=== PATIENT | male | born 1960 | race Two or more races ===

== ENCOUNTER 2017-07-14 20:32 | Emergency (ER) | payer BC, OTHER ==
[~2017-07-14] VITALS: Ht 177.8 cm; Wt 111.1 kg
[~2017-07-14 20:32] MED LIST: EMTRTAB7 PO; RALT400T PO
[2017-07-14 20:37] VITALS: BP 177/96
== END 2017-07-15 01:27 | disposition home or self-care (01) ==
LOC: ER 20:42
DX: S60.042A Contusion of left ring finger without damage to nail, initial encounter (principal); I10 Essential (primary) hypertension; W19.XXXA Unspecified fall, initial encounter; Y93.89 Activity, other specified; Y92.89 Other specified places as the place of occurrence of the external cause; Y99.8 Other external cause status
CPT/HCPCS: 73140

== ENCOUNTER → 2018-08-17 | Outpatient (CLI) | payer OTHER, BC ==
[2018-08-17 08:46] LABS: Basophils # (auto) 0 uL; Basophils % (auto) 0.6 % (0.0-2.0); Eosinophils # (auto) 0.1 uL; Hematocrit 47.4 % (41.0-53.0); Lymphocytes # (auto) 1.3 uL; Lymphocytes % (auto) 19.4 % (10.0-50.0); Mean Corpuscular Hemoglobin 32.6 pg (28.0-32.0); Mean Corpuscular Hgb Conc. 33.7 g/dL (32.0-36.0); Mean Corpuscular Volume 96.8 fL (80.0-100.0); Monocytes # (auto) 0.4 uL; Monocytes % (auto) 6.1 % (0.0-12.0); Neutrophils # (auto) 5.1 uL; Neutrophils % (auto) 72.9 % (37.0-80.0); Platelet Count (auto) 239 10^3/uL (140-450); Red Cell Distribution Width 13.4 % (11.8-14.3); Urine Bacteria NONE SEEN /hpf (None Seen); Urine Blood Negative /uL (Negative); Urine Specific Gravity 1.019 (1.001-1.035); Urine WBC <1 /hpf (0 - 3)
[2018-08-17 09:11] LABS: Albumin 3.5 g/dL (3.4-5.0); Anion Gap 6 (5-15); Blood Urea Nitrogen 14 mg/dL (7-18); Calcium 8.4 mg/dL (8.5-10.1); Carbon Dioxide 24 mmol/L (21-32); Chloride 110 mmol/L (98-107); Glucose 103 mg/dL (74-106); Sodium 140 mmol/L (136-145)
[2018-08-17 09:17] LABS: Alanine Aminotransferase 29 U/L (16-61); Alkaline Phosphatase 74 U/L (45-117); Aspartate Aminotransferase 17 U/L (15-37); BUN/Creatinine Ratio 21.5; Bilirubin, Total 0.3 mg/dL (0.2-1.0); Cholesterol 215 mg/dL (< 200); HDL Cholesterol 58 mg/dL (40-59); LDL Cholesterol 151 mg/dL (< 100); Total Protein 7.1 g/dL (6.4-8.2); Triglycerides 86 mg/dL (< 150)
[2018-08-17 09:21] LABS: GFR African American > 60 mL/min; GFR Non-African American > 60 mL/min
[2018-08-17 09:31] LABS: Prostate Specific Antigen 0.64 ng/mL (0.0-4.0)
[2018-08-17 09:41] LABS: Folate (Folic Acid) 16.98 ng/mL (5.38-24)
== END | disposition home or self-care (01) ==
LOC: LAB 07:35
PROVIDERS: ATTEND Nurse Practitioner
DX: E78.5 Hyperlipidemia, unspecified (principal)
CPT/HCPCS: 36415; 80053; 80061; 81001; 82306; 82607; 82746; 83036; 84153; 84443; 84550; 85025; 85652

== ENCOUNTER → 2018-11-30 | Outpatient (CLI) | payer BC ==
[2018-11-30 08:16] LABS: Urine Bacteria NONE SEEN /hpf (None Seen); Urine Blood Negative /uL (Negative); Urine Specific Gravity 1.019 (1.001-1.035); Urine WBC <1 /hpf (0 - 3)
[2018-11-30 08:51] LABS: Potassium 4.4 mmol/L (3.5-5.1)
[2018-11-30 09:07] LABS: Albumin 3.6 g/dL (3.4-5.0); BUN/Creatinine Ratio 14.3; Bilirubin, Total 0.3 mg/dL (0.2-1.0); Total Protein 6.8 g/dL (6.4-8.2)
== END | disposition home or self-care (01) ==
LOC: LAB 07:35
PROVIDERS: ATTEND Nurse Practitioner
DX: E78.5 Hyperlipidemia, unspecified (principal); E11.9 Type 2 diabetes mellitus without complications
CPT/HCPCS: 36415; 80053; 80061; 81001; 82043; 83036

== ENCOUNTER → 2019-04-27 | Outpatient (CLI) | payer BC ==
[2019-04-27 08:22] LABS: Cholesterol 161 mg/dL (< 200); HDL Cholesterol 58 mg/dL (40-59); LDL Cholesterol 93 mg/dL (< 100); Triglycerides 81 mg/dL (< 150)
== END | disposition home or self-care (01) ==
LOC: LAB 07:30
PROVIDERS: ATTEND Nurse Practitioner
DX: E78.5 Hyperlipidemia, unspecified (principal); I10 Essential (primary) hypertension
CPT/HCPCS: 36415; 80061; 83036

== ENCOUNTER → 2019-12-07 | Outpatient (CLI) | payer BC ==
[2019-12-07 10:05] LABS: Urine Bacteria NONE SEEN /hpf (None Seen); Urine Blood Negative /uL (Negative); Urine Mucus FEW (None Seen); Urine Specific Gravity 1.021 (1.001-1.035); Urine WBC <1 /hpf (0 - 3)
[2019-12-07 11:38] LABS: Albumin 3.3 g/dL (3.4-5.0); Potassium 4.1 mmol/L (3.5-5.1)
[2019-12-07 11:46] LABS: BUN/Creatinine Ratio 16.9; Bilirubin, Total 0.6 mg/dL (0.2-1.0); Calcium 8.8 mg/dL (8.5-10.1); Total Protein 7.1 g/dL (6.4-8.2)
== END | disposition home or self-care (01) ==
LOC: LAB 09:32
PROVIDERS: ATTEND Nurse Practitioner
DX: E78.5 Hyperlipidemia, unspecified (principal); I10 Essential (primary) hypertension
CPT/HCPCS: 36415; 80053; 80061; 81001; 84443

== ENCOUNTER → 2020-02-18 | Outpatient (CLI) | payer BC ==
[2020-02-18 08:30] LABS: Basophils # (auto) 0 10 ^3/uL (0-0.2); Basophils % (auto) 0.7 % (0.0-2.0); Eosinophils # (auto) 0.1 10 ^3/uL (0-0.8); Eosinophils % (auto) 0.9 % (0.0-7.0); Hematocrit 47.8 % (41.0-53.0); Lymphocytes # (auto) 1.3 10 ^3/uL (0.4-5.4); Lymphocytes % (auto) 19.6 % (10.0-50.0); Mean Corpuscular Hemoglobin 32.4 pg (28.0-32.0); Mean Corpuscular Hgb Conc. 33.5 g/dL (32.0-36.0); Mean Corpuscular Volume 96.8 fL (80.0-100.0); Monocytes # (auto) 0.4 10 ^3/uL (0-1.3); Monocytes % (auto) 6.6 % (0.0-12.0); Neutrophils # (auto) 4.9 10 ^3/uL (1.6-8.6); Neutrophils % (auto) 72.2 % (37.0-80.0); Platelet Count (auto) 238 10^3/uL (140-450); Red Blood Cells 4.93 10^6/uL (4.5-5.90); Red Cell Distribution Width 13.5 % (11.8-14.3); White Blood Cell 6.8 10^3/uL (4.4-10.8)
[2020-02-18 08:34] LABS: Urine Bacteria FEW /hpf (None Seen); Urine Blood Negative /uL (Negative); Urine Mucus FEW (None Seen); Urine Specific Gravity 1.024 (1.001-1.035); Urine WBC 1 /hpf (0 - 3)
[2020-02-18 09:08] LABS: Albumin 3.5 g/dL (3.4-5.0); BUN/Creatinine Ratio 21.7; Bilirubin, Total 0.3 mg/dL (0.2-1.0); Calcium 8.6 mg/dL (8.5-10.1); Total Protein 6.8 g/dL (6.4-8.2)
== END | disposition home or self-care (01) ==
LOC: LAB 08:01
PROVIDERS: ATTEND Nurse Practitioner
DX: E78.5 Hyperlipidemia, unspecified (principal); I10 Essential (primary) hypertension; R53.83 Other fatigue
CPT/HCPCS: 36415; 80053; 80061; 81001; 83036; 84403; 84443; 85025; 85652; 86431

== ENCOUNTER → 2021-03-08 | Outpatient (CLI) | payer BC | END | disposition home or self-care (01) | LOC: LAB 11:07 | PROVIDERS: ATTEND Nurse Practitioner Family | DX: U07.1 COVID-19 (principal) | CPT/HCPCS: 36415; 87426 ==

== ENCOUNTER 2022-07-11 06:28 | Day surgery (SDC) | payer BC ==
[2022-07-08 14:17] LABS: Urine Bacteria None Seen /hpf (None Seen); Urine WBC None Seen /hpf (0 - 3)
[2022-07-08 14:26] LABS: Basophils # (auto) 0.1 10 ^3/uL (0-0.2); Basophils % (auto) 0.8 % (0.0-2.0); Eosinophils # (auto) 0.1 10 ^3/uL (0-0.8); Eosinophils % (auto) 1.7 % (0.0-7.0); Hematocrit 47.1 % (41.0-53.0); Hemoglobin 15.7 g/dL (13.5-17.5); Lymphocytes # (auto) 1.6 10 ^3/uL (0.4-5.4); Lymphocytes % (auto) 23.9 % (10.0-50.0); Mean Corpuscular Hemoglobin 32.2 pg (28.0-32.0); Mean Corpuscular Hgb Conc. 33.4 g/dL (32.0-36.0); Mean Corpuscular Volume 96.2 fL (80.0-100.0); Monocytes # (auto) 0.6 10 ^3/uL (0-1.3); Neutrophils # (auto) 4.2 10 ^3/uL (1.6-8.6); Neutrophils % (auto) 64.6 % (37.0-80.0); Nucleated Red Blood Cells % 0.1 %; Red Blood Cells 4.89 10^6/uL (4.5-5.90); Red Cell Distribution Width 13.6 % (11.8-14.3); White Blood Cell 6.5 10^3/uL (4.4-10.8)
[2022-07-08 14:44] LABS: INR 1.03 (0.9-1.15); Partial Thromboplastin Time 26.8 sec (24.6-33.4)
[2022-07-08 14:48] LABS: Albumin 3.5 g/dL (3.4-5.0); Calcium 8.4 mg/dL (8.5-10.1); Potassium 3.9 mmol/L (3.5-5.1)
[2022-07-08 14:56] LABS: BUN/Creatinine Ratio 20.6; Bilirubin, Total 0.2 mg/dL (0.2-1.0); Total Protein 6.8 g/dL (6.4-8.2)
[2022-07-08 17:13] LABS: Urine Specific Gravity 1.024 (1.001-1.035)
[2022-07-08 17:14] LABS: Urine Blood Negative /uL (Negative)
[~2022-07-11] VITALS: Ht 177.8 cm; Wt 99.8 kg
[~2022-07-11 06:28] MED LIST changes: -EMTRTAB7 PO; +LISI20TA28 PO; -RALT400T PO; +TERA2CAP45 PO
[2022-07-11] MEDS ORDERED: LIDOCAINE W/ EPINEPHRINE 2% INJ 20ML VIAL ONE (06:51)
[2022-07-11] MEDS ORDERED: BUPIVACAINE 0.25% INJ 50ML VIAL ONE (06:51)
[2022-07-11] MEDS ORDERED: VANCOMYCIN HCL 1000 MG VL ONE (06:52)
[2022-07-11] MEDS ORDERED: MORPHINE SULF PF 5 MG/10 ML VIAL ONE (07:05)
[2022-07-11] MEDS ORDERED: MIDAZOLAM HCL 2MG/2ML 2ml VIAL (1mg/ml) ONE (07:15)
[2022-07-11] MEDS ORDERED: KETAMINE HCL 10 ML ONE (07:15)
[2022-07-11] MEDS ORDERED: fentaNYL CITRATE 100 MCG/2 ML VL ONE (07:15)
[2022-07-11] MEDS ORDERED: GLYCOPYRROLATE 0.2 MG/ML 1ML VIAL ONE (07:16)
[2022-07-11] MEDS ORDERED: ONDANSETRON HCL 4 MG/2 ML VIAL ONE (07:16)
[2022-07-11] MEDS ORDERED: PROPOFOL 10 MG/ML 20 ML IV ONE (07:16)
[2022-07-11] MEDS ORDERED: ceFAZolin 1GM/50ML 100 ML IV ONE (07:19)
[2022-07-11] MEDS ORDERED: HYDROmorphone HCL 2 MG/ML VL/or syr ONE (08:05)
[2022-07-11] MEDS ORDERED: ONDANSETRON HCL 4 MG/2 ML VIAL IV PRN (08:45)
[2022-07-11] MEDS ORDERED: HYDROmorphone HCL 2 MG/ML VL/or syr IV PRN (08:45)
[2022-07-11 09:05] VITALS: BP 105/55
== END 2022-07-11 09:12 | disposition home or self-care (01) ==
LOC: SUR 06:28
PROVIDERS: ATTEND Anesthesiology Pain Medicine
DX: M48.062 Spinal stenosis, lumbar region with neurogenic claudication (principal); I10 Essential (primary) hypertension; G89.29 Other chronic pain; Z20.822 Contact with and (suspected) exposure to COVID-19; Z79.899 Other long term (current) drug therapy
CPT/HCPCS: 22869; 22870; 36415; 72100; 76000; 80053; 81001; 85025; 85610; 85730; 87086; C1821; J0690; J1170; J2250; J2270; J2405; J2704; J3010; J3370; J3490; U0003

== ENCOUNTER → 2023-10-15 | Outpatient (CLI) | payer BC ==
[~2023-10-15] MED LIST changes: -LISI20TA28 PO; +LISI20TA56 PO
[2023-10-15 07:25] LABS: Urine Bacteria NONE SEEN /hpf (None Seen); Urine Blood Negative /uL (Negative); Urine Clarity Clear (Clear); Urine Color Yellow (Yellow); Urine Mucus FEW (None Seen); Urine Protein, UAD TRACE (Negative); Urine Specific Gravity 1.025 (1.001-1.035); Urine Urobilinogen Normal (Negative); Urine WBC 1 /hpf (0 - 3)
[2023-10-15 07:28] LABS: Basophils # (auto) 0 10 ^3/uL (0-0.2); Basophils % (auto) 0.6 % (0.0-2.0); Eosinophils # (auto) 0.2 10 ^3/uL (0-0.8); Eosinophils % (auto) 2.2 % (0.0-7.0); Hematocrit 47.1 % (41.0-53.0); Hemoglobin 16.1 g/dL (13.5-17.5); Lymphocytes # (auto) 2.5 10 ^3/uL (0.4-5.4); Lymphocytes % (auto) 31.2 % (10.0-50.0); Mean Corpuscular Hemoglobin 32.7 pg (28.0-32.0); Mean Corpuscular Hgb Conc. 34.1 g/dL (32.0-36.0); Monocytes # (auto) 0.8 10 ^3/uL (0-1.3); Monocytes % (auto) 9.5 % (0.0-12.0); Neutrophils # (auto) 4.6 10 ^3/uL (1.6-8.6); Neutrophils % (auto) 56.5 % (37.0-80.0); Red Blood Cells 4.91 10^6/uL (4.5-5.90); Red Cell Distribution Width 14.1 % (11.8-14.3); White Blood Cell 8.1 10^3/uL (4.4-10.8)
[2023-10-15 07:36] LABS: Alanine Aminotransferase 21 U/L (7-40); Albumin 4.1 g/dL (3.2-4.8); Alkaline Phosphatase 92 U/L (46-116); Anion Gap 6 (5-15); Aspartate Aminotransferase 15 U/L (13-40); BUN/Creatinine Ratio 16.7 (10.0-20.0); Blood Urea Nitrogen 11 mg/dL (9-23); Calcium 8.8 mg/dL (8.5-10.1); Carbon Dioxide 29 mmol/L (20-30); Chloride 107 mmol/L (98-107); Glucose 106 mg/dL (74-106); LDL Cholesterol 134 mg/dL (< 100); Sodium 142 mmol/L (136-145); Triglycerides 125 mg/dL (< 150)
[2023-10-15 07:37] LABS: Bilirubin, Total 0.5 mg/dL (0.2-1.0); Cholesterol 186 mg/dL (< 200); HDL Cholesterol 51 mg/dL (40-59); Total Protein 6.6 g/dL (5.7-8.2)
== END | disposition home or self-care (01) ==
LOC: LAB 06:45
PROVIDERS: ATTEND Nurse Practitioner
DX: I10 Essential (primary) hypertension (principal); E78.5 Hyperlipidemia, unspecified; R73.9 Hyperglycemia, unspecified
CPT/HCPCS: 36415; 80053; 80061; 81001; 83036; 84153; 84443; 85025

== ENCOUNTER 2024-08-03 13:01 | Emergency (ER) | payer BC ==
[~2024-08-03] VITALS: Ht 172.7 cm; Wt 96.0 kg
[~2024-08-03 13:01] MED LIST changes: -TERA2CAP45 PO; +TERA2CAP79 PO
[2024-08-03 13:32] VITALS: BP 138/84; PULSE 68; RESP 20; O2SAT 94
--- NOTE | 2024-08-03 16:12 | ED.PDOC ---
History of Present Illness(SKN HPI Comments Presents with dermatomal vesicular rash located on left side of the face Onset began 5 days Characterizes painful, rated at, and described as burning/stinging sensation Denies eye pain, vision loss, floaters, diplopia Denies fevers chills abdominal pain nausea vomiting diarrhea Chief Complaint: Rash Time Seen by MD: 14:47 Primary Care Provider: paco History of Present Illness: Nurses Notes, Medications, Allergies Allergies: Coded Allergies: NO KNOWN ALLERGIES (Unverified , 09/20/13) Home Meds Active Scripts Ibuprofen Micronized (Ibuprofen) 800 Mg Tab, 800 MG PO TID for 14 Days, #42 TAB 0 Refills Prov:SHY BURNS CHANNEL [employer] 08/03/24 Valacyclovir Hcl (Valtrex) 1 Gm Tab, 1 TAB PO DAILY, #30 TAB 5 Refills Prov:SHY BURNS CH[employer]IP ST[employer] INSOLES 08/03/24 Reported Medications Lisinopril (Lisinopril) 20 Mg Tab, 20 MG PO DAILY, TAB 07/08/22 Terazosin Hcl (Terazosin Hcl) 2 Mg Cap, 2 MG PO QPM, CAP 07/08/22 Information Source: Patient Mode of Arrival: Ambulatory Past Medical History PAST MEDICAL HISTORY: HTN, Denies Surgical History: Denies all surgeries Family History Family History: Unobtainable Social History Smoker: Non-Smoker Alcohol: Denies ETOH Use Drugs: Denies Drug Use Lives In: Home All Other Systems: Reviewed and Negative (per hpi) Physical Exam General Appearance: No Apparent Distress, Normal HEENT: Normal ENT Inspection, Pharynx Normal, TMs Normal Neck: Full Range of Motion, Non-Tender, Normal, Normal Inspection Respiratory: Chest Non-Tender, Lungs Clear, No Accessory Muscle Use, No Respiratory Distress, Normal Breath Sounds Cardiovascular: No Edema, No JVD, No Murmur, No Gallop, Normal Peripheral Pulses, Regular Rate/Rhythm Breast Exam: Deferred Gastrointestinal: No Organomegaly, Non Tender, No Pulsatile Mass, Normal Bowel Sounds, Soft Genitalia: Deferred Pelvic: Deferred Rectal: Deferred Extremities: No calf tenderness, Normal capillary refill, Normal inspection, Normal range of motion, Non-tender, No pedal edema Musculoskeletal : Apperance: Normal Neurologic: Alert, 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 It does not cross the dermatome. No ocular involvement), Warm Lymphatic: No Adenopathy Was a procedure done? Was a procedure done?: Yes Sedation Sedation?: No Other Procedure Procedure eye exam Notes Applied 1 drop of tetracaine and patient reported instant relief with topical anesthesia Applied fluorescein strip Using Sandhu lamp Grant Sign negative Branching/dendritic pattern negative Visual acuity intact Differential Diagnosis (INTG) Differential Diagnosis: Herpes Zoster/Simplex, Varicella, Other X-Ray, Labs, Meds, VS Vital Signs Date Time Temp Pulse Resp B/P (MAP) Pulse Ox O2 Delivery O2 Flow Rate FiO2 08/03/24 13:32 99.6 68 20 138/84 (102) 94 X-Ray, Labs, Meds, VS Comment History of physical exam consistent with shingles Take antiviral medication as prescribed Keep skin clean and dry to reduce bacterial superinfection Consider cool astringent soaks Skin lesions usually within 2 to 4 weeks, but complete healing may take 1 to 4 weeks Patient is stable for discharge at this time. External notes reviewed. Test results and diagnostic imaging interpreted. All diagnostic findings, discharge care, education and instructions provided Follow-up with PCP in 2 to 3 days Patient verbalized understanding and agreed to treatment plan Vital signs stable, afebrile, no acute distress noted Patient ambulatory with strong steady gait Advised to return precautions for any new or worsening symptoms, return to ER immediately for re-evaluation Patient is aware that the purpose of this visit was for an acute medical emergency requiring emergent stabilization. Chronic conditions, including malignancies have not been ruled out. Patient is instructed to follow up with PCP as directed and discharge instructions for continued care and workup. If unable to arrange follow-up, patient is to return to the emergency department for reassessment. Patient (parent or legal guardian if applicable) was given verbal and written discharge instructions and acknowledges understanding. Time of 1ST Reevaluation: 16:00 Reevaluation 1ST: Improved Patient Education/Counseling: Diagnosis, Treatment Family Education/Counseling: Diagnosis, Treatment Departure 1 Departure Time of Disposition: 16:21 Impression: Primary Impression: Shingles Qualified Codes: B02.9 - Zoster without complications Disposition: HOME / SELF CARE / HOMELESS Condition: Stable e-Prescriptions Ibuprofen Micronized (Ibuprofen) 800 Mg Tab 800 MG PO TID for 14 Days, #42 TAB 0 Refills Prov: SHY BURNS [employer]OL[employer] 08/03/24 Valacyclovir Hcl (Valtrex) 1 Gm Tab 1 TAB PO DAILY, #30 TAB 5 Refills Prov: SHY BURNS CH[employer]IP [employer] INSOLES 08/03/24 Discharged With: Self Critical Care Note Critical Care Time?: No Stability Stability form required: No Heart Score Heart Score: Heart Score Response (Comments) Value History N/A 0 EKG N/A 0 Age N/A 0 Risk Factors N/A 0 Troponin N/A 0 Total 0 SHY BURNS NP Aug 03, 2024 16:12
[2024-08-03] MEDS ORDERED: IBUP-1455 PO (16:23)
[2024-08-03] MEDS ORDERED: VALA1TAB PO (16:23)
[2024-08-03] MEDS: FLUORESCEIN SOD OPTH TEST STRIP EACHEYE ONE (16:26)
[2024-08-03] MEDS: TETRACAINE HCL 0.5% OPTH(EYE) SOLN 4ML EACHEYE ONE (16:26)
== END 2024-08-03 16:34 | disposition home or self-care (01) ==
LOC: ER 13:01
DX: B02.9 Zoster without complications (principal); I10 Essential (primary) hypertension; Z79.899 Other long term (current) drug therapy

== ENCOUNTER 2024-08-05 13:55 | Inpatient (IN) | payer BC, MEDICARE ==
[~2024-08-05] VITALS: Ht 167.6 cm; Wt 99.0 kg
[~2024-08-05 13:55] MED LIST changes: +IBUP-1455 PO; +VALA1TAB PO
--- NOTE | 2024-08-05 15:26 | ED.PDOC ---
History of Present Illness(SKN HPI Comments A 64 YEAR OLD MALE PRESENTS TO THE ED WITH CHIEF COMPLAINT OF LEFT SIDED FACIAL RASH AND SWELLING. PATIENT REPORTS THAT HE STARTED TO EXPERIENCE A RASH TO THE LEFT SIDE OF HIS FOREHEAD/SCALP THAT WORSENED OVER TIME FOR THE PAST WEEK. PATIENT RELAYS THAT HE WAS SEEN ON FRIDAY IN THE ED AND WAS DIAGNOSED WITH SHINGLES, BEING PRESCRIBED AN ANTIVIRAL. HE FINISHED HIS ACYCLOVIR MEDICATION BUT IT HAS NOT RELIEVED HIS SYMPTOMS AND TODAY HE STARTED TO HAVE LEFT SIDED FACIAL/LEFT EYELIDS SWELLING, NOW BEING UNABLE TO OPEN HIS LEFT EYELIDS. PATIENT DENIES ANY FEVER, CHILLS, DIZZINESS, HEADACHE, VISION CHANGE, N/V, OR ITCHINESS. NO OTHER SYMPTOMS REPORTED AT THIS TIME OF CARE. Chief Complaint: Rash Time Seen by MD: 15:17 Primary Care Provider: ? History of Present Illness: Nurses Notes, Medications, Allergies Allergies: Coded Allergies: NO KNOWN ALLERGIES (Unverified , 09/20/13) Home Meds Active Scripts Ibuprofen Micronized (Ibuprofen) 800 Mg Tab, 800 MG PO TID for 14 Days, #42 TAB 0 Refills Prov:SHY BURNS MACHINE [employer]AM[employer] 08/03/24 Valacyclovir Hcl (Valtrex) 1 Gm Tab, 1 TAB PO DAILY, #30 TAB 5 Refills Prov:SHY BURNS [employer]ACHINE [employer]AM[employer]ATER 08/03/24 Reported Medications Lisinopril (Lisinopril) 20 Mg Tab, 20 MG PO DAILY, TAB 07/08/22 Terazosin Hcl (Terazosin Hcl) 2 Mg Cap, 2 MG PO QPM, CAP 07/08/22 Information Source: Patient Mode of Arrival: Ambulatory Severity: Moderate Timing: Weeks Duration: Since onset Prehospital treatment: None Location: Face Mechanism: Spontaneous Onset Developed: Facial Swelling, Rash Object: None Retained Foreign Body: No Wound Type: Unknown Immunization Status of Animal: NA Tetanus: Unknown History of: None Associated Signs and Symptoms: Redness, Swelling, Facial Swelling, Pain Past Medical History PAST MEDICAL HISTORY: HTN Surgical History: Denies all surgeries Family History Family History: Unobtainable Social History Smoker: Non-Smoker Alcohol: Denies ETOH Use Drugs: Denies Drug Use Lives In: Home Constitutional: denies: chills, diaphoresis, fatigue, fever, malaise, sweats, weakness, others EENTM: reports: others (LEFT UPPER AND LOWER EYELID SWELLING. ); denies: blurred vision, double vision, ear bleeding, ear discharge, ear drainage, ear pain, ear ringing, eye pain, hearing loss, mouth pain, mouth swelling, nasal discharge, nose bleeding, nose congestion, nose pain, photophobia, tearing, throat pain, throat swelling, voice changes Respiratory: denies: cough, hemoptysis, orthopnea, SOB at rest, shortness of breath, SOB with excertion, stridor, wheezing, others Cardiovascular: denies: chest pain, dizzy spells, diaphoresis, Dyspnea on exertion, edema, irregular heart beat, left arm pain, lightheadedness, palpitat ions, PND, syncope, others Gastrointestinal: denies: abdomen distended, abdominal pain, blood streaked bow els, constipated, diarrhea, dysphagia, difficulty swallowing, hematemesis, melena, nausea, poor appetite, poor fluid intake, rectal bleeding, rectal pain, vomiting, others Genitourinary: denies: burning, dysuria, flank pain, frequency, hematuria, incontinence, penile discharge, penile sore, pain, testicle pain, testicle swelling, urgency, others Neurological: denies: dizziness, fainting, headache, left sided numbness, left sided weakness, numbness, paresthesia, pre-existing deficit, right sided numbness, right sided weakness, seizure, speech problems, tingling, tremors, weakness, others Musculoskeletal: denies: back pain, gout, joint pain, joint swelling, muscle pain, muscle stiffness, neck pain, others Integumetry: reports: lesions (TO LEFT FOREHEAD), rash, wounds; denies: bruises, change in color, change in hair/nails, dryness, laceration, lumps, others Allergic/Immunocompromised: denies: Difficulty Healing, Frequent Infections, Hives, Itching, others Hematologic/Lymphatic: denies: anemia, blood clots, easy bleeding, easy bruising, swollen glands, others Endocrine: denies: excessive hunger, excessive sweating, excessive thirst, excessive urination, flushing, intolerance to cold, intolerance to heat, unexplained weight gain, unexplained weight loss, others Psychiatric: denies: anxiety, bipolar disorder, depression, hopeless, panic disorder, schizophrenia, sleepless, suicidal, others All Other Systems: Reviewed and Negative Physical Exam General Appearance: No Apparent Distress, Normal HEENT: Eye Lid (L) (REDNESS AND SWELLING ON LEFT UPPER AND LOWER EYELID. ), Normal ENT Inspection, PERRL/EOMI, Pharynx Normal Neck: Full Range of Motion, Non-Tender, Normal, Normal Inspection Respiratory: Chest Non-Tender, Lungs Clear, No Accessory Muscle Use, No Respiratory Distress, Normal Breath Sounds Cardiovascular: No Edema, No JVD, No Murmur, No Gallop, Normal Peripheral Pulses, Regular Rate/Rhythm Breast Exam: Deferred Gastrointestinal: No Organomegaly, Non Tender, No Pulsatile Mass, Normal Bowel Sounds, Soft Genitalia: Deferred Pelvic: Deferred Rectal: Deferred Extremities: No calf tenderness, Normal capillary refill, Normal inspection, Normal range of motion, Non-tender, No pedal edema Musculoskeletal : Apperance: Normal Neurologic: Alert, 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 ), Warm, Wounds (PAPULAR AND MACULAR OPEN WOUND WITH CRUSTING AND BLACK SCABS ON LEFT FOREHEAD, NO PUS DRAINAGE. HERPES ZOSTER/CELLULITIS. ) Peripheral Pulses: 2+ carotid (R), 2+ carotid (L) Lymphatic: No Adenopathy Was a procedure done? Was a procedure done?: No Differential Diagnosis (INTG) Differential Diagnosis: Cellulitis, Herpes Zoster/Simplex, Impetigo, Intertrigo X-Ray, Labs, Meds, VS Vital Signs Date Time Temp Pulse Resp B/P (MAP) Pulse Ox O2 Delivery O2 Flow Rate FiO2 08/05/24 16:18 99.0 74 18 133/85 (101) 94 99.0 08/05/24 14:15 98.0 87 18 147/80 (102) 96 Lab Test 08/05/24 15:51 08/05/24 15:28 Range/Units White Blood Count 5.7 4.4-10.8 10^3/uL Red Blood Count 4.84 4.5-5.90 10^6/uL Hemoglobin 16.0 13.5-17.5 g/dL Hematocrit 46.2 41.0-53.0 % Mean Corpuscular Volume 95.5 80.0-100.0 fL Mean Corpuscular Hemoglobin 33.0 H 28.0-32.0 pg Mean Corpuscular Hemoglobin Concent 34.6 32.0-36.0 g/dL Red Cell Distribution Width 13.4 11.8-14.3 % Platelet Count 183 140-450 10^3/uL Mean Platelet Volume 7.0 6.9-10.8 fL Neutrophils (%) (Auto) 62.2 37.0-80.0 % Lymphocytes (%) (Auto) 21.3 10.0-50.0 % Monocytes (%) (Auto) 14.9 H 0.0-12.0 % Eosinophils (%) (Auto) 1.1 0.0-7.0 % Basophils (%) (Auto) 0.5 0.0-2.0 % Neutrophils # (Auto) 3.5 1.6-8.6 10 ^3/uL Lymphocytes # (Auto) 1.2 0.4-5.4 10 ^3/uL Monocytes # (Auto) 0.8 0-1.3 10 ^3/uL Eosinophils # (Auto) 0.1 0-0.8 10 ^3/uL Basophils # (Auto) 0 0-0.2 10 ^3/uL Nucleated Red Blood Cells 0.2 % Sodium Level 140 136-145 mmol/L Potassium Level 3.6 3.5-5.1 mmol/L Chloride Level 107 98-107 mmol/L Carbon Dioxide Level 26 20-31 mmol/L Anion Gap 7 5-15 Blood Urea Nitrogen 9 9-23 mg/dL Creatinine 0.69 L 0.700-1.30 mg/dL Glomerular Filtration Rate Calc 102 >90 mL/min BUN/Creatinine Ratio 13.0 10.0-20.0 Serum Glucose 107 H 74-106 mg/dL Lactic Acid Level 2.0 0.4-2.0 mmol/L Calcium Level 9.8 8.7-10.4 mg/dL Urine Color Yellow Yellow Urine Clarity Clear Clear Urine pH 6.0 5.0-9.0 Urine Specific [place] 1.021 1.001-1.035 Urine Protein Negative Negative Urine Ketones Trace Negative Urine Blood Negative Negative /uL Urine Nitrite Negative Negative Urine Bilirubin Negative Negative Urine Urobilinogen Normal Negative mg/dL Urine Leukocyte Esterase Negative Negative /uL Urine RBC 2 0 - 3 /hpf Urine WBC 1 0 - 3 /hpf Urine Squamous Epithelial Cells None seen <5 /hpf Urine Bacteria None seen None Seen /hpf Urine Hyaline Casts Few 0 - 2 /lpf Urine Mucus Few None Seen Urine Glucose Normal Normal mg/dL Current Medications Medications (Trade) Dose Ordered Sig/Jason Route Start Time Stop Time Status Last Admin Ceftriaxone Sodium 50 ml @ 100 mls/hr ONCE ONCE IV 08/05/24 15:30 08/05/24 15:59 DC 08/05/24 16:50 X-Ray, Labs, Meds, VS Comment EXTERNAL MEDICAL RECORDS REVIEWED: 08/03/24 FOR SHINGLES INDEPENDENT HISTORIANS: [NONE] SOCIAL DETERMINANTS OF HEALTH: [NONE] LABS ORDERED: BLOOD CULTURE, LACTIC, UA, CBC, BMP REVIEWED AND INTERPRETED RESULTS: NONE IMAGING ORDERED: NONE TREATMENTS ORDERED: ACYCLOVIR 800MG IV, ROCEPHIN 1G IV, NORMAL SALINE 1L IV DUE TO PATIENT FINISHING PREVIOUSLY PRESCRIBED ACYCLOVIR AND CONTINUED TO EXPERIENCE LEFT FACIAL SWELLING AND SOFT TISSUE INFECTION, PATIENT IS TO BE ADMITTED FOR FAILED OUTPATIENT TREATMENT AND REQUIRES FURTHER INPATIENT TREATMENT AND EVALUATION. Time of 1ST Reevaluation: 16:40 Reevaluation 1ST: Unchanged Patient Education/Counseling: Diagnosis, Treatment Family Education/Counseling: No Family Present Departure 1 Departure Time of Disposition: 16:40 Impression: Primary Impression: Cellulitis of face Additional Impressions: Herpes zoster Qualified Codes: B02.8 - Zoster with other complications Failure of outpatient treatment Disposition: ADMITTED INPATIENT Condition: Serious Critical Care Note Critical Care Time?: No Stability Stability form required: No Unstable for transfer: Requires medication, ED Physician Assesment, Possible rapid decline Heart Score Heart Score: Heart Score Response (Comments) Value History N/A 0 EKG N/A 0 Age N/A 0 Risk Factors N/A 0 Troponin N/A 0 Total 0 I personally scribed for REINALDO CHAVEZ ([email or web address]) on 08/05/24 at 15:26. Electronically submitted by Sha Ellis ([email or web address]). REINALDO CHAVEZ Aug 05, 2024 15:26
[2024-08-05] MEDS ORDERED: CLINDAMYCIN 900MG IV 50 ML IV ONE (15:30)
[2024-08-05 15:39] LABS: Urine Bacteria None Seen /hpf (None Seen)
[2024-08-05 16:11] LABS: Urine Blood Negative /uL (Negative); Urine Clarity Clear (Clear); Urine Color Yellow (Yellow); Urine Hyaline Cast FEW /lpf (0 - 2); Urine Mucus FEW (None Seen); Urine Protein, UAD Negative (Negative); Urine Specific Gravity 1.021 (1.001-1.035); Urine Squamous Epithelial Cell None Seen /hpf (<5); Urine Urobilinogen Normal (Negative); Urine WBC 1 /hpf (0 - 3)
[2024-08-05 16:14] LABS: Basophils # (auto) 0 10 ^3/uL (0-0.2); Basophils % (auto) 0.5 % (0.0-2.0); Eosinophils # (auto) 0.1 10 ^3/uL (0-0.8); Eosinophils % (auto) 1.1 % (0.0-7.0); Hematocrit 46.2 % (41.0-53.0); Lymphocytes # (auto) 1.2 10 ^3/uL (0.4-5.4); Lymphocytes % (auto) 21.3 % (10.0-50.0); Mean Corpuscular Hgb Conc. 34.6 g/dL (32.0-36.0); Mean Corpuscular Volume 95.5 fL (80.0-100.0); Monocytes # (auto) 0.8 10 ^3/uL (0-1.3); Monocytes % (auto) 14.9 % (0.0-12.0); Neutrophils # (auto) 3.5 10 ^3/uL (1.6-8.6); Neutrophils % (auto) 62.2 % (37.0-80.0); Nucleated Red Blood Cells % 0.2 %; Platelet Count (auto) 183 10^3/uL (140-450); Red Blood Cells 4.84 10^6/uL (4.5-5.90); Red Cell Distribution Width 13.4 % (11.8-14.3); White Blood Cell 5.7 10^3/uL (4.4-10.8)
[2024-08-05] MEDS: SODIUM CHLORIDE 0.9% 1,000 ML IV ONE (16:20)
[2024-08-05 16:27] LABS: Potassium 3.6 mmol/L (3.5-5.1); Sodium 140 mmol/L (136-145)
[2024-08-05 16:28] LABS: Anion Gap 7 (5-15); Calcium 9.8 mg/dL (8.7-10.4); Carbon Dioxide 26 mmol/L (20-31)
[2024-08-05 16:34] LABS: Blood Urea Nitrogen 9 mg/dL (9-23); Chloride 107 mmol/L (98-107); Glucose 107 mg/dL (74-106)
[2024-08-05] MEDS: cefTRIAXone 1GM/50ML D5W 50 ML IV ONE (16:50)
[2024-08-05 19:15] VITALS: PULSE 79; RESP 13; O2SAT 96
[2024-08-05 19:45] VITALS: PULSE 77; RESP 17; O2SAT 97
[2024-08-05] MEDS: ACYCLOVIR SOD 50MG/ML 800 MG in SODIUM CHL 0.9% 250 ML IV ONE (21:00)
[2024-08-05] MEDS ORDERED: hydrALAZINE HCL 20 MG/ML VL IV PRN (21:15)
[2024-08-05] MEDS ORDERED: ACETAMINOPHEN 325 MG TAB PO PRN (21:15)
[2024-08-05] MEDS ORDERED: ONDANSETRON HCL 4 MG/2 ML VIAL IV PRN (21:15)
[2024-08-05] MEDS ORDERED: DOCUSATE SOD 100 MG CAP PO PRN (21:15)
[2024-08-05] MEDS: MORPHINE SULFATE 4 MG/ML SYR/VIAL IV ONE (21:21)
[2024-08-05] MEDS: ONDANSETRON HCL 4 MG/2 ML VIAL IV ONE (21:21)
[2024-08-05] MEDS ORDERED: ACYCLOVIR SOD IV SCH (22:00)
[2024-08-05] MEDS: ASCORBIC ACID 500 MG TAB PO SCH (22:00)
[2024-08-05] MEDS ORDERED: D5W 5% IV SCH (22:00)
[2024-08-05] MEDS: SODIUM CHLOR 0.9% PF (SALINE LOCK) 10ML VIAL/SYR IV SCH (22:15)
--- NOTE | 2024-08-05 22:58 | DVHHP2 ---
History of Present Illness Reason for Visit: Cellulitis of face History of Present Illness The patient is a 64-year-old male with past medical history of hypertension who presented to [facility] ED with complaint of left-sided facial rash and swelling. Patient reports he started experiencing a rash the left side f orehead/scalp that worsened over the time for the past week, getting worse today that prompted this visit. Patient reports she was seen on Friday in the ED and was diagnosed with shingle and was discharged home with an antiviral regimen. However, symptoms continued to get worse, no relief of symptoms, lesions spreading to the left side of his face/eyelid swelling. Patient was seen and evaluated in the ED, laboratory data shows WBC 5.7, platelets 183, sodium 140, potassium 3.6, BUN 9, creatinine 0.69, GFR 102, glucose 107, blood pressure 131/56, pulse 76, temperature 99.0 F, O2 saturation 96% room air. Patient was started IV antiviral regimen acyclovir, please see medication orders section in the computer. On my assessment, patient denies chest pain, no headache, no dizziness no diaphoresis, no shortness of breath, no nausea, no vomiting, no fever, no chills. Patient was admitted for further evaluation and medical management. Past Medical History Hypertension Past Surgical History Denies all surgeries Family History Reviewed, noncontributory to the management of this case. Past Social History The patient lives at home, denies smoking, alcohol or illicit drugs abuse. Review of Systems Constitutional: No: Fever, Chills, Sweats, Weakness, Malaise, Other Eyes: Other (Left upper and lower eyelid swelling), Redness; No: Pain, Vision change, Conjunctivae inflammation, Eyelid inflammation ENT: No: Ear pain, Ear discharge, Nose pain, Nose discharge, Nose congestion, Mouth pain, Mouth swelling, Throat pain, Throat swelling, Other Respiratory: No: Cough, Dry, Shortness of breath, SOB with excertion, Wheezing, Hemoptysis, Pleuritic Pain, Sputum, Wheezing, Other Cardiovascular: No: Chest Pain, Palpitations, Orthopnea, Paroxysmal Noc. Dyspnea, Edema, Lt Headedness, Other Gastrointestinal: No: Nausea, Vomiting, Abdominal Pain, Diarrhea, Constipation, Melena, Hematochezia, Other Genitourinary: No Dysuria, No Frequency, No Incontinence, No Hematuria, No Retention, No Other Musculoskeletal: No: other, neck pain, shoulder pain, arm pain, back pain, hand pain, leg pain, foot pain Skin: Rash (Left forehead.), Lesions (Facial), Other (Open wound); No: Jaundice, Bruising Neurological: No: Weakness, Numbness, Incoordination, Change in speech, Confusion, Seizures, Other Allergies: Coded Allergies: NO KNOWN ALLERGIES (Unverified , 09/20/13) Medications Current Medications Medications Dose Ordered Sig/Jason Route Start Time Stop Time Status Last Admin Dose Admin Ceftriaxone Sodium 50 ml @ 100 mls/hr DAILY@09 IV 08/06/24 09:00 Hydralazine HCl 10 mg Q6HP PRN IV 08/05/24 21:15 Sodium Chloride 10 ml Q8HR IV 08/05/24 22:00 08/05/24 22:15 10 ML Acetaminophen/ Hydrocodone Bitart 1 tab Q4HP PRN PO 08/05/24 21:15 Ondansetron HCl 4 mg Q4HP PRN IV 08/05/24 21:15 Docusate Sodium 100 mg BIDPRN PRN PO 08/05/24 21:15 Zinc Sulfate 220 mg DAILY PO 08/06/24 10:00 Ascorbic Acid 500 mg BID PO 08/05/24 22:00 Acetaminophen 650 mg Q6HP PRN PO 08/05/24 21:15 Morphine Sulfate 2 mg Q4HPRN PRN IV 08/05/24 21:15 Acyclovir Sodium 1000 mg/Dextrose 270 ml @ 135 mls/hr Q8HR IV 08/06/24 06:00 Exam Vital Signs Vital Signs Date Time Temp Pulse Resp B/P (MAP) Pulse Ox O2 Delivery O2 Flow Rate FiO2 08/05/24 22:00 86 18 113/71 08/05/24 19:45 97 08/05/24 19:45 Room Air* 0 21 08/05/24 16:18 99.0 99.0 General Appearance: Alert, Oriented X3, Cooperative, No acute distress HEENT: Atraumatic, PERRLA, EOMI, Mucous membr. moist/pink Respiratory: Clear to auscultation, Normal air movement Cardiovascular: Regular rate, Normal S1, Normal S2, No murmurs Abdominal: Normal bowel sounds, Soft, No tenderness, No hepatospenomegaly, No masses Extremities: No clubbing, No cyanosis, No edema, Normal pulses, No tenderness/swelling Skin: No significant lesion (Facial lesion) Neuro: Normal gait, Normal speech, Strength at 5/5 X4 ext, Normal tone, Sensation intact, Cranial nerves 3-12 NL, Reflexes 2+ Psych/Mental Status: Mental status NL, Mood NL Labs/Xrays Labs Test 08/05/24 15:51 08/05/24 15:28 Range/Units White Blood Count 5.7 4.4-10.8 10^3/uL Red Blood Count 4.84 4.5-5.90 10^6/uL Hemoglobin 16.0 13.5-17.5 g/dL Hematocrit 46.2 41.0-53.0 % Mean Corpuscular Volume 95.5 80.0-100.0 fL Mean Corpuscular Hemoglobin 33.0 H 28.0-32.0 pg Mean Corpuscular Hemoglobin Concent 34.6 32.0-36.0 g/dL Red Cell Distribution Width 13.4 11.8-14.3 % Platelet Count 183 140-450 10^3/uL Mean Platelet Volume 7.0 6.9-10.8 fL Neutrophils (%) (Auto) 62.2 37.0-80.0 % Lymphocytes (%) (Auto) 21.3 10.0-50.0 % Monocytes (%) (Auto) 14.9 H 0.0-12.0 % Eosinophils (%) (Auto) 1.1 0.0-7.0 % Basophils (%) (Auto) 0.5 0.0-2.0 % Neutrophils # (Auto) 3.5 1.6-8.6 10 ^3/uL Lymphocytes # (Auto) 1.2 0.4-5.4 10 ^3/uL Monocytes # (Auto) 0.8 0-1.3 10 ^3/uL Eosinophils # (Auto) 0.1 0-0.8 10 ^3/uL Basophils # (Auto) 0 0-0.2 10 ^3/uL Nucleated Red Blood Cells 0.2 % Sodium Level 140 136-145 mmol/L Potassium Level 3.6 3.5-5.1 mmol/L Chloride Level 107 98-107 mmol/L Carbon Dioxide Level 26 20-31 mmol/L Anion Gap 7 5-15 Blood Urea Nitrogen 9 9-23 mg/dL Creatinine 0.69 L 0.700-1.30 mg/dL Glomerular Filtration Rate Calc 102 >90 mL/min BUN/Creatinine Ratio 13.0 10.0-20.0 Serum Glucose 107 H 74-106 mg/dL Lactic Acid Level 2.0 0.4-2.0 mmol/L Calcium Level 9.8 8.7-10.4 mg/dL Urine Color Yellow Yellow Urine Clarity Clear Clear Urine pH 6.0 5.0-9.0 Urine Specific [place] 1.021 1.001-1.035 Urine Protein Negative Negative Urine Ketones Trace Negative Urine Blood Negative Negative /uL Urine Nitrite Negative Negative Urine Bilirubin Negative Negative Urine Urobilinogen Normal Negative mg/dL Urine Leukocyte Esterase Negative Negative /uL Urine RBC 2 0 - 3 /hpf Urine WBC 1 0 - 3 /hpf Urine Squamous Epithelial Cells None seen <5 /hpf Urine Bacteria None seen None Seen /hpf Urine Hyaline Casts Few 0 - 2 /lpf Urine Mucus Few None Seen Urine Glucose Normal Normal mg/dL Assessment/Plan Assessment/Plan Cellulitis of face Herpes zoster Zoster with other complications Failure of outpatient treatment Plan 1. Admit to med surge unit 2. Breathing treatment 3. Pain control management 4. IV antibiotic management 5. Management of fluids and electrolytes 6. Consultation for hospitalist 7. Diagnostic test chest x-ray 8. DVT prophylaxis-on SCDs 9. Repeat labs CBC, CMP in a.m. 10. Continue with current medical management 11. Treatment plan discussed with patient and RN. Patient verbalized understanding. Plan discussed with: Patient, Other (RN) My Orders Orders - SANDRINE CARLSON DNP Procedure Category Date Status Time Ceftriaxone 1gm/50ml PHA 08/06/24 In Process D5w (Rocephin) 09:00 Hydralazine Injection PHA 08/05/24 In Process (Apresoline Inject 21:15 Allergies RAJNI 08/05/24 In Process 21:05 Code Status CODE 08/05/24 Transmitted 21:05 Sodium Chloride Lock PHA 08/05/24 In Process (Saline Lock Ns) 22:00 Oxygen Per Hour RT 08/05/24 Transmitted 21:05 Hydrocodone-Acet PHA 08/05/24 In Process 5/325mg Tab ([place] 21:15 Ondansetron Hcl PHA 08/05/24 In Process (Zofran) 21:15 Docusate Sodium PHA 08/05/24 In Process Capsule (Colace 21:15 Zinc Sulfate PHA 08/06/24 In Process 10:00 Ascorbic Acid Tablet PHA 08/05/24 In Process (Vitamin C Tablet) 22:00 Complete Blood Count LAB 08/06/24 Verified 04:00 Comprehensive LAB 08/06/24 Verified Metabolic Panel 04:00 Cardiac DIET 08/06/24 Transmitted Diet-2gna,Lofat,Lochol Breakfast Condition: Serious RAJNI 08/05/24 In Process 21:05 Acetaminophen Tablet PHA 08/05/24 In Process (Tylenol Tablet) 21:15 Bedrest With Bathroom RAJNI 08/05/24 In Process Privileg 21:05 Morphine Sulfate PHA 08/05/24 In Process Injection 21:15 Sequential RAJNI 08/05/24 In Process Compression Device Acyclovir Sod 50mg/Ml PHA 08/06/24 In Process (Zovirax) 06:00 Problem List: (1) Cellulitis of face (2) Herpes zoster (3) Zoster with other complications (4) Failure of outpatient treatment Date of Service: Aug 05, 2024 Billing Provider: SANDRINE CARLSON DNP Common Visit Codes: [id number] INP/OBS CARE (HIGH) SANDRINE CARLSON DNP Aug 05, 2024 22:58
[2024-08-05] MEDS ORDERED: MORPHINE SULFATE INJ 2 MG/ml SYRG IV PRN (23:00)
[2024-08-05] MEDS ORDERED: NITROGLYCERIN 0.4 MG SL TAB SL PRN (23:00)
[2024-08-06 01:06] VITALS: BP 144/87; PULSE 63; RESP 18; TEMP 98; O2SAT 96
[2024-08-06] MEDS ORDERED: MELO7.5T7 PO (02:16)
[2024-08-06] MEDS ORDERED: VALA1TAB PO (02:20)
[2024-08-06] MEDS ORDERED: TAMS0.4C39 PO (02:20)
[2024-08-06] MEDS ORDERED: IBUP-1456 PO (02:20)
[2024-08-06 05:00] VITALS: BP 153/83; PULSE 61; RESP 18; TEMP 97.9; O2SAT 93
[2024-08-06 08:00] VITALS: BP 149/87; PULSE 69; RESP 16; RESP 18; TEMP 97.7; O2SAT 94; O2SAT 98
[2024-08-06 09:01] LABS: Basophils # (auto) 0 10 ^3/uL (0-0.2); Basophils % (auto) 0.6 % (0.0-2.0); Eosinophils # (auto) 0.2 10 ^3/uL (0-0.8); Eosinophils % (auto) 2.3 % (0.0-7.0); Hematocrit 43.8 % (41.0-53.0); Hemoglobin 14.7 g/dL (13.5-17.5); Lymphocytes # (auto) 2.2 10 ^3/uL (0.4-5.4); Lymphocytes % (auto) 31.1 % (10.0-50.0); Mean Corpuscular Hemoglobin 32.1 pg (28.0-32.0); Mean Corpuscular Hgb Conc. 33.5 g/dL (32.0-36.0); Mean Corpuscular Volume 95.8 fL (80.0-100.0); Monocytes # (auto) 0.9 10 ^3/uL (0-1.3); Monocytes % (auto) 12.4 % (0.0-12.0); Neutrophils # (auto) 3.7 10 ^3/uL (1.6-8.6); Neutrophils % (auto) 53.6 % (37.0-80.0); Nucleated Red Blood Cells % 0.2 %; Platelet Count (auto) 177 10^3/uL (140-450); Red Blood Cells 4.58 10^6/uL (4.5-5.90); Red Cell Distribution Width 13.6 % (11.8-14.3)
[2024-08-06 09:04] LABS: Alanine Aminotransferase 17 U/L (7-40); Alkaline Phosphatase 75 U/L (46-116); Anion Gap 5 (5-15); BUN/Creatinine Ratio 14.1 (10.0-20.0); Blood Urea Nitrogen 10 mg/dL (9-23); Calcium 9.4 mg/dL (8.7-10.4); Carbon Dioxide 28 mmol/L (20-31); Glucose 100 mg/dL (74-106); Potassium 3.9 mmol/L (3.5-5.1); Sodium 142 mmol/L (136-145)
[2024-08-06 09:05] LABS: Albumin 3.9 g/dL (3.2-4.8); Aspartate Aminotransferase 19 U/L (13-40); Bilirubin, Total 0.4 mg/dL (0.2-1.0); Total Protein 6.2 g/dL (5.7-8.2)
[2024-08-06 09:12] LABS: Chloride 109 mmol/L (98-107)
[2024-08-06] MEDS: ACYCLOVIR SOD IV SCH ×2 (09:16→17:00)
[2024-08-06] MEDS: D5W 5% IV SCH ×2 (09:16→17:00)
[2024-08-06] MEDS: ZINC SULFATE 220mg CAP or TAB PO SCH (09:17)
[2024-08-06] MEDS: HYDROcodone-ACET 5/325MG TAB PO PRN (09:17)
[2024-08-06] MEDS ORDERED: DOXYCYCLINE 100MG/100ML 100 ML IV SCH (10:45)
--- NOTE | 2024-08-06 10:45 | DVHPNRES ---
Progress Note Date Seen: Aug 06, 2024 Resident Creating Document: ABDIAZIZ RIVERA RESIDENT Has the PT tested + for MRSA If YES, has PT been informed?: No Medical Necessity Reason Pt with a Central, PICC or Fol: No Subjective Patient reports: No new complaints, Feels better Changes from previous H/P or p: No Changes Review of Systems: HEENT:Abnormal (Facial brushes, crusting, left upper hemiface.), CVS:Normal, RESPIRATORY:Normal, GI:Normal, :Normal, MSK:Normal, NEURO:Normal Objective vital signs Vital Sign Date Time Temp Pulse Resp B/P (MAP) Pulse Ox O2 Delivery O2 Flow Rate FiO2 08/06/24 08:00 97.7 69 16 149/87 (107) 94 97.7 08/06/24 01:06 Room Air* 0 21 Total Intake and Output 08/05/24 08/05/24 08/06/24 15:00 23:00 07:00 Intake Total 266 ml 400 ml Balance 266 ml 400 ml medications Current Medications Medications Dose Ordered Sig/Jason Route Start Time Stop Time Status Last Admin Dose Admin Ceftriaxone Sodium 50 ml @ 100 mls/hr DAILY@09 IV 08/06/24 09:00 Hydralazine HCl 10 mg Q6HP PRN IV 08/05/24 21:15 Sodium Chloride 10 ml Q8HR IV 08/05/24 22:00 08/06/24 06:00 10 ML Acetaminophen/ Hydrocodone Bitart 1 tab Q4HP PRN PO 08/05/24 21:15 08/06/24 09:17 1 TAB Ondansetron HCl 4 mg Q4HP PRN IV 08/05/24 21:15 Docusate Sodium 100 mg BIDPRN PRN PO 08/05/24 21:15 Zinc Sulfate 220 mg DAILY PO 08/06/24 10:00 08/06/24 09:17 220 MG Ascorbic Acid 500 mg BID PO 08/05/24 22:00 08/06/24 09:17 500 MG Acetaminophen 650 mg Q6HP PRN PO 08/05/24 21:15 Morphine Sulfate 2 mg Q4HPRN PRN IV 08/05/24 21:15 Acyclovir Sodium 1000 mg/Dextrose 270 ml @ 135 mls/hr Q8HR IV 08/06/24 06:00 08/06/24 09:16 135 MLS/HR Nitroglycerin 0.4 mg Q5MINP PRN SL 08/05/24 23:00 Morphine Sulfate 2 mg Q30M PRN IV 08/05/24 23:00 Doxycycline Hyclate 100 ml @ 50 mls/hr Q12H IV 08/06/24 10:45 UNV Gabapentin 300 mg BID PO 08/06/24 22:00 UNV Tamsulosin HCl 0.4 mg DAILY PO 08/07/24 18:00 UNV Examination: GENERAL:Normal, HEENT:Abnormal (facial left V1 herpes zoster ), NECK:Normal, LUNGS:Normal, CVS:Normal, ABDOMEN:Normal, MSK:Normal, SKIN:Normal, NEURO:Normal, :Normal laboratory and microbiology Laboratory Tests 08/06/24 08:00 Test 08/06/24 08:00 Range/Units Serum Glucose 100 74-106 mg/dL Labs and/or images reviewed: Labs reviewed by me, Image(s) reviewed by me Problem List/Assessment/Plan Problem List/Assessment/Plan Hospitalization summary/ Assessment: Mr. Mcgrath, 64-year-old male presented to the emergency department with a left-sided facial rash and swelling. He initially developed a rash on the left side of his forehead and scalp that worsened over the past week. Previously diagnosed with shingles and prescribed acyclovir, his symptoms did not improve. Today, he experienced swelling on the left side of his face and eyelids, making it difficult to open his left eye. He denies having fever, chills, dizziness, headache, vision changes, nausea. Plan: #Herpes zoster ophthalmicus : IV acyclovir 1000 mg Q 8 hour to continue. Failure of outpatient oral valacyclovir. Vitamin-C, patient is counseled regarding the high potential chance of involvement of left eye. #herpes zoster distribution with crusting and redness around the periorbital area. #facial cellulitis likely superimposed to viral infection: Continue oral doxycycline #ruled out secondary immunodeficiency with negative HIV, negative diabetes. #Prediabetic range HbA1c 6.1: Weight loss, lifestyle modification counseling done. #Postoperative neuralgia, b.i.d. gabapentin 300 mg #Grade 2 obesity: 36.6 lifestyle modification #BPH: tamsulosin 0.4 mg daily. #headache: As needed acetaminophen. Diet: cardiac diet. GI prophylaxis: protonix 40mg DVT prophylaxis: Lovenox 40mg Bowel regimen: MiraLax as needed. Barriers to discharge: Medical diagnosis and management in progress. Lives in home with and family. Originally from [place]. Works at [employer] Patient care and plan discussed with Dr. Davis Disposition: Patient remains in Med surge. Contact/airborne isolation to continue. Code status: Full code, discussed over 41 minutes. Plan discussed with: Patient, Other (Primary team, RN.) My Orders My Orders Orders - ABDIAZIZ RIVERA Procedure Category Date Status Time Doxycycline Iv PHA 08/06/24 Logged (Vibramycin) 10:45 Gabapentin Capsule PHA 08/06/24 Logged (Neurontin Capsule) 22:00 Gabapentin Capsule PHA 08/06/24 Logged (Neurontin Capsule) 10:45 Hemoglobin A1c LAB 08/06/24 Logged 10:38 Precautions: Contact RAJNI 08/06/24 In Process 10:38 Hiv 1&2 Antibody LAB 08/06/24 Logged 10:39 Tamsulosin PHA 08/07/24 Logged Hydrochloride (Flomax) 18:00 Complete Blood Count LAB 08/07/24 Verified 04:00 Basic Metabolic Panel LAB 08/07/24 Verified 04:00 Date of Service: Aug 06, 2024 Billing Provider: LATONIA CONCEPCION MD Common Visit Codes: [id number] INP/OBS CARE(HIGH) ABDIAZIZ RIVERA Aug 06, 2024 10:45 LATONIA CONCEPCION MD Aug 09, 2024 11:30
[2024-08-06] MEDS: MORPHINE SULFATE INJ 2 MG/ml SYRG IV PRN (11:59)
[2024-08-06] MEDS: cefTRIAXone 1GM/50ML D5W 50 ML IV SCH (12:00)
[2024-08-06 13:00] VITALS: BP 159/81; PULSE 69; RESP 16; TEMP 98; O2SAT 94
[2024-08-06] MEDS ORDERED: POLYETHYLENE GLYCOL 17 GM PWDR PO PRN (15:30)
[2024-08-06] MEDS: GABAPENTIN 300 MG CAP PO ONE (15:35)
[2024-08-06] MEDS: DOXYCYCLINE 100 MG TAB/CAP PO ONE (15:35)
[2024-08-06 20:00] VITALS: PULSE 69; RESP 17; O2SAT 98
[2024-08-06 21:00] VITALS: BP 122/70; PULSE 69; RESP 17; TEMP 98; O2SAT 96
[2024-08-06] MEDS: GABAPENTIN 300 MG CAP PO SCH (22:22)
[2024-08-06] MEDS: DOXYCYCLINE 100 MG TAB/CAP PO SCH (22:22)
[2024-08-06] MEDS: TAMSULOSIN HYDROCHLORIDE 0.4 MG CAP PO SCH (22:24)
[2024-08-07 05:00] VITALS: BP 151/57; PULSE 78; RESP 17; TEMP 98.1; O2SAT 93
[2024-08-07 09:00] VITALS: BP 138/66; PULSE 66; RESP 18; TEMP 98.7; O2SAT 93
[2024-08-07 10:42] LABS: Basophils # (auto) 0 10 ^3/uL (0-0.2); Basophils % (auto) 0.7 % (0.0-2.0); Eosinophils # (auto) 0.2 10 ^3/uL (0-0.8); Eosinophils % (auto) 2.8 % (0.0-7.0); Hematocrit 45.8 % (41.0-53.0); Hemoglobin 15.4 g/dL (13.5-17.5); Lymphocytes # (auto) 1.9 10 ^3/uL (0.4-5.4); Lymphocytes % (auto) 28.1 % (10.0-50.0); Mean Corpuscular Hemoglobin 32.2 pg (28.0-32.0); Mean Corpuscular Hgb Conc. 33.6 g/dL (32.0-36.0); Mean Corpuscular Volume 95.8 fL (80.0-100.0); Monocytes # (auto) 0.6 10 ^3/uL (0-1.3); Monocytes % (auto) 8.1 % (0.0-12.0); Neutrophils # (auto) 4.1 10 ^3/uL (1.6-8.6); Neutrophils % (auto) 60.3 % (37.0-80.0); Platelet Count (auto) 195 10^3/uL (140-450); Red Blood Cells 4.78 10^6/uL (4.5-5.90); Red Cell Distribution Width 13.5 % (11.8-14.3); White Blood Cell 6.8 10^3/uL (4.4-10.8)
[2024-08-07 10:47] LABS: Anion Gap 8 (5-15); Carbon Dioxide 25 mmol/L (20-31); Chloride 104 mmol/L (98-107); Potassium 3.7 mmol/L (3.5-5.1); Sodium 137 mmol/L (136-145)
[2024-08-07 10:48] LABS: Calcium 9.8 mg/dL (8.7-10.4)
[2024-08-07 10:53] LABS: BUN/Creatinine Ratio 11.7 (10.0-20.0)
[2024-08-07 10:59] LABS: Blood Urea Nitrogen 9 mg/dL (9-23); Glucose 170 mg/dL (74-106)
[2024-08-07 12:17] LABS: Alanine Aminotransferase 18 U/L (7-40); Alkaline Phosphatase 85 U/L (46-116); Anion Gap 12 (5-15); BUN/Creatinine Ratio 11.8 (10.0-20.0); Calcium 9.9 mg/dL (8.7-10.4); Carbon Dioxide 23 mmol/L (20-31); Chloride 103 mmol/L (98-107); Potassium 3.8 mmol/L (3.5-5.1); Sodium 138 mmol/L (136-145)
[2024-08-07 12:18] LABS: Albumin 4.1 g/dL (3.2-4.8); Aspartate Aminotransferase 16 U/L (13-40); Bilirubin, Total 0.3 mg/dL (0.2-1.0); Total Protein 6.8 g/dL (5.7-8.2)
[2024-08-07 12:19] LABS: Blood Urea Nitrogen 9 mg/dL (9-23); Glucose 170 mg/dL (74-106)
[2024-08-07] MEDS: amLODIPine BESYLATE 5 MG TAB PO SCH (12:29)
[2024-08-07 13:00] VITALS: BP 136/77; PULSE 68; RESP 18; TEMP 98.3; O2SAT 95
[2024-08-07 16:57] VITALS: BP 119/62; PULSE 71; RESP 18; TEMP 98.4; O2SAT 95
[2024-08-07 20:00] VITALS: PULSE 73; RESP 18; O2SAT 93
[2024-08-07 21:00] VITALS: BP 157/88; PULSE 73; RESP 18; TEMP 98.2; O2SAT 93
[2024-08-07] MEDS: GABAPENTIN 300 MG CAP PO SCH (21:15)
[2024-08-08 05:00] VITALS: BP 119/84; PULSE 73; RESP 18; TEMP 97.7; O2SAT 97
[2024-08-08 09:00] VITALS: BP 109/70; PULSE 71; RESP 18; TEMP 98.1; O2SAT 94
--- NOTE | 2024-08-08 09:24 | DVHPNRES ---
Progress Note Date Seen: Aug 07, 2024 Resident Creating Document: ABDIAZIZ RIVERA RESIDENT Has the PT tested + for MRSA If YES, has PT been informed?: No Medical Necessity Reason Pt with a Central, PICC or Fol: No Subjective Review of Systems Saw the patient at bedside, patient has swelling significantly improved, still having pain likely neurogenic. Counseling done at bedside regarding post herpetic neuralgia. Changes from previous H/P or p: No Changes, Changes Review of Systems: HEENT:Abnormal (Facial rashes), CVS:Normal, RESPIRATORY:Normal, GI:Normal, :Normal, MSK:Normal, NEURO:Normal Objective vital signs Vital Sign Date Time Temp Pulse Resp B/P (MAP) Pulse Ox O2 Delivery O2 Flow Rate FiO2 08/08/24 05:00 97.7 73 18 119/84 (96) 97 97.7 08/07/24 20:00 Room Air* 0 21 Total Intake and Output 08/07/24 08/07/24 08/08/24 15:00 23:00 07:00 Intake Total 113 ml 1113 ml 750 ml Output Total 1200 ml Balance 113 ml -87 ml 750 ml medications Current Medications Medications Dose Ordered Sig/Jason Route Start Time Stop Time Status Last Admin Dose Admin Hydralazine HCl 10 mg Q6HP PRN IV 08/05/24 21:15 Sodium Chloride 10 ml Q8HR IV 08/05/24 22:00 08/08/24 05:29 10 ML Acetaminophen/ Hydrocodone Bitart 1 tab Q4HP PRN PO 08/05/24 21:15 08/07/24 12:29 1 TAB Ondansetron HCl 4 mg Q4HP PRN IV 08/05/24 21:15 Docusate Sodium 100 mg BIDPRN PRN PO 08/05/24 21:15 Zinc Sulfate 220 mg DAILY PO 08/06/24 10:00 08/07/24 09:23 220 MG Ascorbic Acid 500 mg BID PO 08/05/24 22:00 08/07/24 21:14 500 MG Acetaminophen 650 mg Q6HP PRN PO 08/05/24 21:15 Morphine Sulfate 2 mg Q4HPRN PRN IV 08/05/24 21:15 08/06/24 11:59 2 MG Nitroglycerin 0.4 mg Q5MINP PRN SL 08/05/24 23:00 Morphine Sulfate 2 mg Q30M PRN IV 08/05/24 23:00 Tamsulosin HCl 0.4 mg HS PO 08/06/24 22:00 08/07/24 21:15 0.4 MG Doxycycline Monohydrate 100 mg Q12HR PO 08/06/24 22:00 08/07/24 21:15 100 MG Acyclovir Sodium 650 mg/Dextrose 113 ml @ 113 mls/hr Q8H IV 08/06/24 17:00 08/08/24 00:19 113 MLS/HR Polyethylene Glycol 17 gm DAILYPRN PRN PO 08/06/24 15:30 Amlodipine Besylate 5 mg DAILY PO 08/07/24 10:00 08/07/24 12:29 5 MG Gabapentin 300 mg TID PO 08/07/24 22:00 08/08/24 05:26 300 MG Examination: GENERAL:Normal, HEENT:Abnormal (V1 distribution rash improved, swelling much improved, no changes in vision. Non-peeling brown dry crusts present. ), NECK:Normal, LUNGS:Normal, CVS:Normal, ABDOMEN:Normal, MSK:Normal, SKIN:Normal, NEURO:Normal, :Normal laboratory and microbiology Laboratory Tests 08/07/24 10:16 Test 08/07/24 10:16 Range/Units Serum Glucose 170 H 74-106 mg/dL Microbiology Date/Time Source Procedure Growth Status 08/05/24 15:51 Blood Blood Culture - Preliminary NO GROWTH AFTER 48 HOURS OF INCUBATION. Resulted Labs and/or images reviewed: Labs reviewed by me, Image(s) reviewed by me Problem List/Assessment/Plan Problem List/Assessment/Plan Hospitalization summary/ Assessment: Mr. Mcgrath, 64-year-old male presented to the emergency department with a left-sided facial rash and swelling. He initially developed a rash on the left side of his forehead and scalp that worsened over the past week. Previously diagnosed with shingles and prescribed acyclovir, his symptoms did not improve. He experienced swelling on the left side of his face and eyelids, making it difficult to open his left eye. He denies having fever, chills, dizziness, headache, vision changes, nausea. Patient is on day 2 of IV acyclovir and improving, neuropathic pain is down only remaining concern. Patient is counseled regarding the nature of post herpetic neuralgia. Plan: #Herpes zoster ophthalmicus : IV acyclovir 1000 mg Q 8 hour>> 650 mg Q 8 hour, as per ideal body weight. Failure of outpatient oral valacyclovir. Vitamin-C, patient is counseled regarding the high potential chance of involvement of left eye. Still no involvement of eyes thankfully. #herpes zoster distribution with crusting and redness around the periorbital area: Much improved since admission #facial cellulitis likely superimposed to viral infection: Continue oral doxycycline 2/7 days. #ruled out secondary immunodeficiency with negative HIV, negative diabetes. #Prediabetic range HbA1c 6.1: Weight loss, lifestyle modification counseling done. #Postoperative neuralgia, b.i.d. gabapentin 300 mg>> increase the gabapentin 300 mg TID with as needed [place]. #Grade 2 obesity: 36.6 lifestyle modification #BPH: tamsulosin 0.4 mg daily. #headache: As needed acetaminophen. Diet: cardiac diet. Continue GI prophylaxis: protonix 40mg DVT prophylaxis: Increase movement. Bowel regimen: MiraLax as needed. Barriers to discharge: Medical diagnosis and management in progress. Lives in home with and family. Originally from [place]. Works at [employer]. Patient care and plan discussed with Dr. Davis Disposition: Patient remains in Med surge. Contact/airborne isolation to continue. At discharge patient is to follow up with ID, PCP, director of business applications, and with the resolution of symptoms patient needs VZV vaccine/Shingrix. Patient also counseled regarding quarantine at discharge at home. Code status: Full code, discussed over 41 minutes. Plan discussed with: Patient, Other (Primary team, RN.) My Orders My Orders Orders - ABDIAZIZ RIVERA Procedure Category Date Status Time Amlodipine Tablet PHA 08/07/24 In Process (Norvasc Tablet) 10:00 Gabapentin Capsule PHA 08/07/24 In Process (Neurontin Capsule) 22:00 Complete Blood Count LAB 08/08/24 Verified 09:17 Basic Metabolic Panel LAB 08/08/24 Verified 09:17 Date of Service: Aug 07, 2024 Billing Provider: LATONIA CONCEPCION MD Common Visit Codes: [id number] INP/OBS CARE(HIGH) ABDIAZIZ RIVERA Aug 08, 2024 09:24 LATONIA CONCEPCION MD Aug 09, 2024 21:12
[2024-08-08 13:00] VITALS: BP 125/71; PULSE 90; RESP 16; TEMP 97.7; O2SAT 94
[2024-08-08 14:02] LABS: Basophils # (auto) 0 10 ^3/uL (0-0.2); Basophils % (auto) 0.4 % (0.0-2.0); Eosinophils # (auto) 0.1 10 ^3/uL (0-0.8); Eosinophils % (auto) 0.9 % (0.0-7.0); Hematocrit 47.5 % (41.0-53.0); Hemoglobin 16.2 g/dL (13.5-17.5); Lymphocytes # (auto) 1.8 10 ^3/uL (0.4-5.4); Lymphocytes % (auto) 22.3 % (10.0-50.0); Mean Corpuscular Hemoglobin 32.5 pg (28.0-32.0); Mean Corpuscular Hgb Conc. 34.1 g/dL (32.0-36.0); Mean Corpuscular Volume 95.2 fL (80.0-100.0); Monocytes # (auto) 0.5 10 ^3/uL (0-1.3); Monocytes % (auto) 6.6 % (0.0-12.0); Neutrophils # (auto) 5.6 10 ^3/uL (1.6-8.6); Neutrophils % (auto) 69.8 % (37.0-80.0); Platelet Count (auto) 208 10^3/uL (140-450); Red Blood Cells 4.99 10^6/uL (4.5-5.90); Red Cell Distribution Width 13.3 % (11.8-14.3)
[2024-08-08 14:05] LABS: Chloride 104 mmol/L (98-107); Sodium 138 mmol/L (136-145)
[2024-08-08 14:06] LABS: Anion Gap 8 (5-15); Calcium 10.1 mg/dL (8.7-10.4); Carbon Dioxide 26 mmol/L (20-31)
[2024-08-08 14:11] LABS: BUN/Creatinine Ratio 18.1 (10.0-20.0); Blood Urea Nitrogen 13 mg/dL (9-23)
[2024-08-08 14:30] LABS: Glucose 182 mg/dL (74-106)
[2024-08-08] MEDS ORDERED: VALA500T33 PO (14:41)
[2024-08-08] MEDS ORDERED: IBUP1TAB5 PO (14:41)
[2024-08-08] MEDS ORDERED: DOX100T PO (14:41)
[2024-08-08] MEDS ORDERED: HYDR-4798 PO (14:41)
--- NOTE | 2024-08-08 15:44 | DVHDSRES ---
Discharge Summary Date of Admission Resident Creating Document: ABDIAZIZ RIVERA RESIDENT Aug 05, 2024 at 22:57 Date of Discharge: Aug 08, 2024 Admitting Diagnosis Cellulitis of the face Labs/Diagnostic Data: Laboratory Results Test 08/08/24 13:40 08/07/24 09:35 08/06/24 08:00 08/05/24 15:51 White Blood Count 8.0 10^3/uL (4.4-10.8) Red Blood Count 4.99 10^6/uL (4.5-5.90) Hemoglobin 16.2 g/dL (13.5-17.5) Hematocrit 47.5 % (41.0-53.0) Mean Corpuscular Volume 95.2 fL (80.0-100.0) Mean Corpuscular Hemoglobin 32.5 pg (28.0-32.0) Mean Corpuscular Hemoglobin Concent 34.1 g/dL (32.0-36.0) Red Cell Distribution Width 13.3 % (11.8-14.3) Platelet Count 208 10^3/uL (140-450) Mean Platelet Volume 6.8 fL (6.9-10.8) Neutrophils (%) (Auto) 69.8 % (37.0-80.0) Lymphocytes (%) (Auto) 22.3 % (10.0-50.0) Monocytes (%) (Auto) 6.6 % (0.0-12.0) Eosinophils (%) (Auto) 0.9 % (0.0-7.0) Basophils (%) (Auto) 0.4 % (0.0-2.0) Neutrophils # (Auto) 5.6 10 ^3/uL (1.6-8.6) Lymphocytes # (Auto) 1.8 10 ^3/uL (0.4-5.4) Monocytes # (Auto) 0.5 10 ^3/uL (0-1.3) Eosinophils # (Auto) 0.1 10 ^3/uL (0-0.8) Basophils # (Auto) 0 10 ^3/uL (0-0.2) Nucleated Red Blood Cells 0.0 % Sodium Level 138 mmol/L (136-145) Potassium Level 4.0 mmol/L (3.5-5.1) Chloride Level 104 mmol/L (98-107) Carbon Dioxide Level 26 mmol/L (20-31) Anion Gap 8 (5-15) Blood Urea Nitrogen 13 mg/dL (9-23) Creatinine 0.72 mg/dL (0.700-1.30) Glomerular Filtration Rate Calc 101 mL/min (>90) BUN/Creatinine Ratio 18.1 (10.0-20.0) Serum Glucose 182 mg/dL (74-106) Calcium Level 10.1 mg/dL (8.7-10.4) Total Bilirubin 0.3 mg/dL (0.2-1.0) Aspartate Amino Transferase (AST) 16 U/L (13-40) Alanine Aminotransferase (ALT) 18 U/L (7-40) Alkaline Phosphatase 85 U/L (46-116) Total Protein 6.8 g/dL (5.7-8.2) Albumin 4.1 g/dL (3.2-4.8) Hemoglobin A1c 6.1 % A1C (<5.7) HIV (1&2) Antibody Negative (Negative) Lactic Acid Level 2.0 mmol/L (0.4-2.0) Test 08/05/24 15:28 Urine Color Yellow (Yellow) Urine Clarity Clear (Clear) Urine pH 6.0 (5.0-9.0) Urine Specific [place] 1.021 (1.001-1.035) Urine Protein Negative (Negative) Urine Ketones Trace (Negative) Urine Blood Negative /uL (Negative) Urine Nitrite Negative (Negative) Urine Bilirubin Negative (Negative) Urine Urobilinogen Normal mg/dL (Negative) Urine Leukocyte Esterase Negative /uL (Negative) Urine RBC 2 /hpf (0 - 3) Urine WBC 1 /hpf (0 - 3) Urine Squamous Epithelial Cells None seen /hpf (<5) Urine Bacteria None seen /hpf (None Seen) Urine Hyaline Casts Few /lpf (0 - 2) Urine Mucus Few (None Seen) Urine Glucose Normal mg/dL (Normal) Other Laboratory Tests 08/08/24 13:40 Brief Hx & Hospital Course: Mr. Mcgrath, a 64-year-old male, presented to the emergency department with a left-sided facial rash and swelling. Initially developing a rash on the left side of his forehead and scalp that worsened over the past week, he was previously diagnosed with shingles and prescribed acyclovir, but his symptoms did not improve. He experienced swelling on the left side of his face and eyelids, making it difficult to open his left eye. He denies fever, chills, dizziness, headache, vision changes, and nausea. Currently on day 2 of IV acyclovir, he is improving, with neuropathic pain being the only remaining concern. The patient has been counseled regarding the nature of post-herpetic neuralgia. Hospice Course: On examination, there was vesicular rashes with crust on the ruptured vesicles on the left upper face, involving V1 distribution with no involvement of eye. The patient was treated for the prazosin and given IV acyclovir 1 g q.6 hours, zinc, vitamin-C, pain killer including [place] and gabapentin. Home medication including tamsulosin amlodipine was discontinued during hospitalization. Blood culture after 48 hours shows no growth. On 08/08, patient was feeling better since admission, but still complained of mild left side pain. Patient was clinically and hemodynamically stable. Discharge plan discussed with the patient and the patient was discharged. Discharge plan: Follow up with the PCP within 1 week of the discharge. Follow up with the Ophthalmology on outpatient basis. Follow up with the ID doctor on outpatient basis. Capsule doxycycline 100 mg b.i.d. for 5 days. Tablet [place] for the pain as needed Tablet ibuprofen 600 mg t.i.d. as needed for the pain Tablet valacyclovir 500 mg t.i.d. for 7 days. Continue home meds Condition at Discharge: Good Final Diagnosis/Problems List Herpes zoster ophthalmicus herpes zoster with involving V1 distribution with no involvement of eyes Ruled out herpes zoster ophthalmicus Possible facial cellulitis likely superimposed to viral infection, likely due to bacteria Gram-positive Gram-negative ruled out secondary immunodeficiency with negative HIV, negative diabetes. Prediabetic range HbA1c 6.1: Possible post herpetic neuralgia Grade 2 obesity: BPH: . headache, likely due to herpes zoster Discharge Disposition: Home Discharge Instruct/Medications Diet: Regular, Cardiac 2g Na,low cholest Activity: No Restrictions, As Tolerated Follow Up/Referral: Follow up with the PCP within 1 week after discharge. Follow up with the Ophthalmology on outpatient basis. Follow up with the ID doctor on an outpatient basis Medications: Tablet valacyclovir t.i.d. for 7 days Capsule doxycycline 100 mg b.i.d. for 5 days Tablet ibuprofen 600 mg t.i.d. for pain Tablet [place] for the pain as needed next Discharge Statement: "Patient was advised to return to the ER or call 911 if any headaches, dizziness, shortness of breath, chest pain, abdominal pain, bleeding, fevers, or worsening of medical condition. Patient was counseled about treatment plan, medications, possible side effects, patientverbalized understanding. All questions were answered to the best of my ability. This discharge took greater then 30 minutes in planning, reviewing documentation, counseling the patient, and discussing with other team members." ASSESSMENT ASSESSMENT Assessment Date of Service: Aug 08, 2024 Billing Provider: LATONIA CONCEPCION MD Common Visit Codes: [id number] INP/OBS CARE(HIGH) DUSTIN LAU RESDIENT Aug 08, 2024 15:44 LATONIA CONCEPCION MD Aug 09, 2024 21:52
[2024-08-08 17:00] VITALS: BP 113/77; PULSE 80; RESP 16; TEMP 97.9; O2SAT 95
== END 2024-08-08 18:30 | disposition home or self-care (01) | DRG 603 ==
LOC: ER 13:55 → OVERFLOW 22:57 → WEST WING 23:54 → CENTRAL 08-06 14:50
PROVIDERS: ADMIT Student in an Organized Health Care Education/Training Program; ATTEND Student in an Organized Health Care Education/Training Program
DX: L03.211 Cellulitis of face (principal); B02.29 Other postherpetic nervous system involvement; I10 Essential (primary) hypertension; N40.0 Benign prostatic hyperplasia without lower urinary tract symptoms; B33.8 Other specified viral diseases; A49.9 Bacterial infection, unspecified; E66.9 Obesity, unspecified; Z79.899 Other long term (current) drug therapy; Z68.35 Body mass index [BMI] 35.0-35.9, adult
CPT/HCPCS: 36415; 80048; 80053; 81001; 83036; 83605; 85025; 86703; 87040; G0378; J2405; J7060

== ENCOUNTER 2025-02-17 07:00 | Outpatient (CLI) | payer BC ==
[~2025-02-17 07:00] MED LIST changes: +DOX100T PO; +HYDR-4798 PO; -IBUP-1455 PO; +IBUP1TAB5 PO; -LISI20TA56 PO; +MELO7.5T7 PO; +TAMS0.4C39 PO; -TERA2CAP79 PO; -VALA1TAB PO; +VALA500T33 PO
[2025-02-17 08:38] LABS: Hematocrit 48.1 % (41.0-53.0); Hemoglobin 16.8 g/dL (13.5-17.5); Mean Corpuscular Hemoglobin 33.0 pg (28.0-32.0); Mean Corpuscular Volume 94.7 fL (80.0-100.0); Nucleated Red Blood Cells % 0.1 %
[2025-02-17 08:52] LABS: Urine Protein, UAD Negative (Negative)
[2025-02-17 08:54] LABS: Alanine Aminotransferase 16 U/L (7-40); Alkaline Phosphatase 79 U/L (46-116); Anion Gap 10 (5-15); Calcium 9.7 mg/dL (8.7-10.4); Carbon Dioxide 24 mmol/L (20-31); Chloride 106 mmol/L (98-107); Potassium 4.0 mmol/L (3.5-5.1); Sodium 140 mmol/L (136-145)
[2025-02-17 08:55] LABS: Albumin 4.6 g/dL (3.2-4.8); BUN/Creatinine Ratio 14.9 (10.0-20.0); Blood Urea Nitrogen 10 mg/dL (9-23); Glucose 96 mg/dL (74-106); Triglycerides 109 mg/dL (< 150)
[2025-02-17 08:56] LABS: Total Protein 7.0 g/dL (5.7-8.2)
[2025-02-17 08:57] LABS: Bilirubin, Total 0.4 mg/dL (0.2-1.0); Cholesterol 212 mg/dL (< 200); HDL Cholesterol 54 mg/dL (40-59)
== END 2025-02-17 17:00 | disposition home or self-care (01) ==
LOC: LAB 07:00
PROVIDERS: ATTEND Nurse Practitioner
DX: I10 Essential (primary) hypertension (principal); E78.5 Hyperlipidemia, unspecified; Z00.00 Encounter for general adult medical examination without abnormal findings
CPT/HCPCS: 36415; 80053; 80061; 81001; 83036; 84153; 84443; 85025